=== PATIENT | male | born 1985 | race Caucasian/White ===

== ENCOUNTER 2023-12-14 21:00 | Emergency (ER) | payer OTHER ==
[2023-12-14 21:15] VITALS: TEMP 98.8
--- NOTE | 2023-12-14 21:31 | ED ---
General Adult HPI - General Source: patient, RN notes reviewed Limitations: no limitations <Etelvina Martinez - Last Filed: 12/14/23 21:26> <Augie Alvarado - Last Filed: 12/14/23 23:10> - General Chief complaint: Extremity Problem,Nontraumatic Stated complaint: Foot Pain Time Seen by Provider: 12/14/23 21:18 - History of Present Illness Initial comments: quick [id number] male presents emergency department chief complaint of bilateral foot pain that has been worsening over the past week. He denies any known injuries to the left feet. States that the pain worsened throughout the day while he is walking and standing on his feet for prolonged period of time. Denies pain in his calfs or lower extremity edema. Denies fevers, chills, nausea, vomiting. Denies history of DVT or blood clotting disorders. (Etelvina Martinez) Patient is presenting with bilateral foot pain. 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 He denies any other injury. He states he typically takes 800 mg Motrin but is out of this medication. No fever. No chest pain. He is also on Norvasc for hypertension. (Augie Alvarado) - Related Data Previous Rx's Medication Instructions Recorded Ibuprofen [Motrin] 600 mg PO Q8HR PRN #24 tab 12/14/23 Allergies Allergy/AdvReac Type Severity Reaction Status Date / Time No Known Allergies Allergy Verified 12/14/23 21:16 Review of Systems ROS Other: All systems not noted in ROS Statement are negative. <Etelvina Martinez - Last Filed: 12/14/23 21:26> ROS Other: All systems not noted in ROS Statement are negative. <Augie Alvarado - Last Filed: 12/14/23 23:10> ROS Statement: Those systems with pertinent positive or pertinent negative responses have been documented in the HPI. Past Medical History Past Medical History: CVA/TIA, Hypertension History of Any Multi-Drug Resistant Organisms: None Reported Past Surgical History: No Surgical Hx Reported Smoking Status: Current every day smoker Past Alcohol Use History: Abuse Past Drug Use History: None Reported <Etelvina Martinez - Last Filed: 12/14/23 21:26> General Exam Limitations: no limitations <Etelvina Martinez - Last Filed: 12/14/23 21:26> General appearance: alert, in no apparent distress Head exam: Present: atraumatic, normocephalic Eye exam: Present: normal appearance, PERRL Neck exam: Present: normal inspection. Absent: tenderness, meningismus Respiratory exam: Present: normal lung sounds bilaterally. Absent: respiratory distress Cardiovascular Exam: Present: regular rate, normal rhythm GI/Abdominal exam: Present: soft. Absent: distended, tenderness Extremities exam: Present: tenderness (Bilateral heel tenderness distal pulses intact, soft tissue swelling), pedal edema Neurological exam: Present: alert, oriented X3 Psychiatric exam: Present: normal affect, normal mood <Augie Alvarado - Last Filed: 12/14/23 23:10> - General Exam Comments Initial Comments: Visual Physical Exam Vital signs reviewed General: Well-appearing, nontoxic, no acute distress. Head: Normocephalic, atraumatic Eyes: PERRLA, EOMI ENT: Airway patent Chest: Nonlabored breathing Skin: No visual rash, normal skin tone Neuro: Alert and oriented 3 Musculoskeletal: No gross abnormalities (Etelvina Martinez) Course Vital Signs 12/14/23 21:12 Temperature 98.8 F Pulse Rate 109 H Respiratory 20 Rate Blood Pressure 145/83 O2 Sat by Pulse 97 Oximetry Medical Decision Making <Etelvina Martinez - Last Filed: 12/14/23 21:26> - Lab Data Result diagrams: 12/14/23 22:08 12/14/23 22:08 <Augie Alvarado - Last Filed: 12/14/23 23:10> - Medical Decision Making I completed the quick note portion of this chart signed Etelvina Martinez PA-C (Etelvina Martinez) Was pt. sent in by a medical professional or institution ([facility], [facility], urgent care, hospital, or longterm...) When possible be specific @ -No Did you speak to anyone other than the patient for history (EMS, parent, family, police, friend...)? What history was obtained from this source @ -No Did you review nursing and triage notes (agree or disagree)? Why? @ -I reviewed and agree with nursing and triage notes Were old charts reviewed (outside hosp., previous admission, EMS record, old EKG, old radiological studies, urgent care reports/EKG's, longterm records)? Report findings @ -No old charts were reviewed Differential Musculoskeletal Muscular strain, contusion, ligament sprain, fracture, arthritis, septic arthritis, bursitis, cellulitis, muscle spasm, nerve compression, DVT, arterial occlusion, herpes zoster, electrolyte abnormality, tumor.... This is not meant to be in all inclusive list EKG interpreted by me (3pts min.). G: Sinus rhythm rate of 96, WV interval 138, QRS duration 105, QTc [address] segment elevation X-rays interpreted by me (1pt min.). @ -X-ray of the bilateral feet negative for displaced fracture, no acute process, mild degenerative change. CT interpreted by me (1pt min.). @ -None done U/S interpreted by me (1pt. min.). @ -None done What testing was considered but not performed or refused? (CT, X-rays, U/S, labs)? Why? @ -None What meds were considered but not given or refused? Why? @ -None Did you discuss the management of the patient with other professionals (professionals i.e. , PA, [employer], lab, RT, psych nurse, social work lecturer, scroll assembler, teacher, administrative hearing officer, case loader operator)? Give summary @ -No Was smoking cessation discussed for >3mins.? @ -No Was critical care preformed (if so, how long)? @ -No Were there social determinants of health that impacted care today? How? (Homelessness, low income, unemployed, alcoholism, drug addiction, transportation, low edu. Level, literacy, decrease access to med. care, snf, rehab)? @ -No Was there de-escalation of care discussed even if they declined (Discuss DNR or withdrawal of care, Hospice)? DNR status @ -No What co-morbidities impacted this encounter? (DM, HTN, Smoking, COPD, CAD, Cancer, CVA, ARF, Chemo, Hep., AIDS, mental health diagnosis, sleep apnea, morbid obesity)? @ -[Hypertension Was patient admitted / discharged? Hospital course, mention meds given and route, prescriptions, significant lab abnormalities, going to OR and other pertinent info. @ -38-year-old male with bilateral feet pain and swelling after standing on his feet for prolonged period of time. He does have pain predominantly in the heel. May have plantar fasciitis. He also has soft tissue swelling in the bilateral feet which is likely from dependent edema and possibility of side effect from Norvasc. Patient is instructed to elevate his feet and take Motrin for pain. Undiagnosed new problem with uncertain prognosis? @ -No Drug Therapy requiring intensive monitoring for toxicity (Heparin, Nitro, Insulin, Cardizem)? @ -No Were any procedures done? @ -No Diagnosis/symptom? @Bilateral heel pain Acute, or Chronic, or Acute on Chronic? @ -Acute Uncomplicated (without systemic symptoms) or Complicated (systemic symptoms)? @ -Default Side effects of treatment? @ -No Exacerbation, Progression, or Severe Exacerbation? @ -No Poses a threat to life or bodily function? How? (Chest pain, [place], [place], pneumonia, PE, COPD, DKA, ARF, appy, cholecystitis, CVA, Diverticulitis, Homicidal, [place] icidal, threat to staff... and all critical care pts) @ -No (Augie Alvarado) - Lab Data Lab Results 12/14/23 12/14/23 Range/Units 22:08 22:08 WBC 11.7 H (3.8-10.6) k/uL RBC 5.15 (4.30-5.90) m/uL Hgb 16.0 (13.0-17.5) gm/dL Hct 48.5 (39.0-53.0) % MCV 94.1 (80.0-100.0) fL MCH 31.1 (25.0-35.0) pg MCHC 33.1 (31.0-37.0) g/dL RDW 12.4 (11.5-15.5) % Plt Count 318 (150-450) k/uL MPV 7.7 Neutrophils % 57 % Lymphocytes % 32 % Monocytes % 8 % Eosinophils % 1 % Basophils % 0 % Neutrophils # 6.7 (1.3-7.7) k/uL Lymphocytes # 3.7 (1.0-4.8) k/uL Monocytes # 0.9 (0-1.0) k/uL Eosinophils # 0.1 (0-0.7) k/uL Basophils # 0.1 (0-0.2) k/uL Sodium 139 (137-145) mmol/L Potassium 4.1 (3.5-5.1) mmol/L Chloride 104 (98-107) mmol/L Carbon Dioxide 25 (22-30) mmol/L Anion Gap 10 mmol/L BUN 15 (9-20) mg/dL Creatinine 0.97 (0.66-1.25) mg/dL Est GFR (CKD-EPI)AfAm >90 (>60 ml/min/1.73 sqM) Est GFR (CKD-EPI)NonAf >90 (>60 ml/min/1.73 sqM) Glucose 93 (74-99) mg/dL Calcium 10.1 (8.4-10.2) mg/dL Total Bilirubin 0.5 (0.2-1.3) mg/dL AST 30 (17-59) U/L ALT 36 (4-49) U/L Alkaline Phosphatase 72 (38-126) U/L Total Protein 8.3 H (6.3-8.2) g/dL Albumin 4.8 (3.5-5.0) g/dL Disposition <Etelvina Martinez - Last Filed: 12/14/23 21:26> Is patient prescribed a controlled substance at d/c from ED?: No Time of Disposition: 23:10 <Augie Alvarado - Last Filed: 12/14/23 23:10> Clinical Impression: Bilateral foot pain Disposition: HOME SELF-CARE Condition: Fair Instructions (If sedation given, give patient instructions): Plantar Fasciitis (ED), Leg Edema (ED) Prescriptions: Ibuprofen [Motrin] 600 mg PO Q8HR PRN #24 tab PRN Reason: Pain Referrals: Nonstaff,Physician [Primary Care Provider] - 1-2 days
--- NOTE | 2023-12-14 22:07 | XR ---
EXAMINATION TYPE: XR foot complete bilateral DATE OF EXAM: 12/14/2023 9:42 PM CLINICAL INDICATION: Male, 38 years old with history of foot pain; COMPARISON: None TECHNIQUE: XR foot complete bilateral examined in the AP, oblique, and lateral projections. FINDINGS: Soft tissue swelling present. No evidence of any acute osseous pathology. Accessory ossicles are pres ent bilaterally. Minimal joint space narrowing osteophyte formation throughout the joints of the the. IMPRESSION: 1. Soft tissue swelling without evidence of fracture bilaterally. 2. Minimal bilateral degeneration changes throughout the joints of the foot. [facility], Workstation: [id number], 12/14/2023 10:05 PM
[2023-12-14 22:37] LABS: Basophils # (A) 0.1 k/uL (0-0.2); Basophils % (A) 0 %; Eosinophils # (A) 0.1 k/uL (0-0.7); Eosinophils % (A) 1 %; HCT 48.5 % (39.0-53.0); Lymphocytes # (A) 3.7 k/uL (1.0-4.8); Lymphocytes % (A) 32 %; MCH 31.1 pg (25.0-35.0); MCHC 33.1 g/dL (31.0-37.0); MCV 94.1 fL (80.0-100.0); Mean Platelet Volume 7.7; Monocytes # (A) 0.9 k/uL (0-1.0); Monocytes % (A) 8 %; Neutrophils # (A) 6.7 k/uL (1.3-7.7); Neutrophils % (A) 57 %; Platelet Count 318 k/uL (150-450); RBC 5.15 m/uL (4.30-5.90); RDW 12.4 % (11.5-15.5); WBC 11.7 k/uL (3.8-10.6)
[2023-12-14 22:55] LABS: ALT 36 U/L (4-49); AST 30 U/L (17-59); African American GFR (CKD) >90 (>60 ml/min/1.73 sqM); Albumin 4.8 g/dL (3.5-5.0); Alkaline Phosphatase 72 U/L (38-126); Anion Gap 10 mmol/L; Blood Urea Nitrogen 15 mg/dL (9-20); Calcium 10.1 mg/dL (8.4-10.2); Carbon Dioxide 25 mmol/L (22-30); Chloride 104 mmol/L (98-107); Glucose 93 mg/dL (74-99); Non-African American GFR(CKD) >90 (>60 ml/min/1.73 sqM); Potassium 4.1 mmol/L (3.5-5.1); Sodium 139 mmol/L (137-145); Total Bilirubin 0.5 mg/dL (0.2-1.3); Total Protein 8.3 g/dL (6.3-8.2)
[2023-12-14] MEDS: KETOROLAC 15 MG/ML 1 ML VIAL IM STA (23:12)
[2023-12-14 23:17] VITALS: BP 142/104; PULSE 96; RESP 17
== END 2023-12-14 23:26 | disposition home or self-care (01) ==
LOC: EC 21:00
CPT/HCPCS: 36415; 80053; 85025; 93005; 96372; 99284

== ENCOUNTER 2024-04-22 19:35 | Outpatient (CLI) | payer OTHER ==
--- NOTE | 2024-04-25 18:39 | P.PCN ---
Description of Procedure: POLYSOMNOGRAPHY REPORT PROCEDURE(S)/DATE(S): Polysomnography 04/22/2024 CLINICAL: Patient has been seen in the sleep center for evaluation of obstructive sleep apnea-hypopnea syndrome. Please see my consultation. Sleep study has been done for evaluation of patient breathing during the sleep. PROCEDURE: The standard montage for clinical polysomnography included the electroencephalogram, the electrooculogram, the mentalis surface electromyography and Lead II cardiography. The respiratory battery consisted of measurements of nasal/buccal air flow, pressure transducer measurements from nose, thoracic and/or abdominal effort and intercostal surface electromyography. Video monitoring has been done to check for any parasomnia events. Nocturnal oxyhemoglobin saturations were obtained by finger oximetry. Step-naranjo titration with positive airway pressure was utilized to control the respiratory events, if necessary. RESULTS: During the diagnostic sleep study sleep efficiency was decreased to 70.1%. Latency to sleep onset was prolonged to 50.0 min. Sleep architecture showed stage NI prolonged to 18.8%, Delta sleep was absent 0%, REM sleep was slightly decreased to 18.1%. Respiratory channel showed 41 obstructive apneas, 1 mixed apneas, 0 central apneas, 461 hypopneas with lowest oxygen level 64%. Total apnea hypopnea index was 106.3. Heart rate was in the range between 63 and 87, average 74. EMG showed 0 periodic limb movements per hour with 0 micro-arousals per hour. IMPRESSIONS: 1. Extremely severe obstructive sleep apnea hypopnea syndrome. 2. No significant periodic limb movements have been documented. Please see other impressions from consultation PLAN: 1. The patient will have PAP titration for correction of respiratory abnormalities during the sleep. 2. Losing weight program. 3. Sleep hygiene with regular time in bed for at least 7-1/2 hours. 4. No driving if feeling sleepiness. Thank you very much for allowing me to participate in the management of your patient. Sincerely, Judd Fowler MD, PhD, FAASM. Diplomat of [place] [employer], Sleep Medicine Board by [place] [employer]arel Manufacture Instructor of [facility] [place] cc: Keiry Hoyt
== END 2024-04-23 05:35 | disposition home or self-care (01) ==
LOC: 3 N SLEEP 19:35
PROVIDERS: ATTEND Internal Medicine
DX: G47.33 Obstructive sleep apnea (adult) (pediatric) (principal)
CPT/HCPCS: 95810

== ENCOUNTER 2024-05-06 19:58 | Outpatient (CLI) | payer OTHER ==
--- NOTE | 2024-05-09 13:33 | P.PCN ---
Description of Procedure: CLINICAL: Titration with positive air pressure has been done for correction of respiratory abnormalities during sleep. DESCRIPTION OF PROCEDURE: The standard montage for clinical polysomnography included the electroencephalogram, the electrocardiogram, the mentalis surface electromyography and Lead II cardiography. The respiratory battery consisted of measurements of nasal /buccal air flow, pressure transducer measurements from the nose, thoracic and /or abdominal effort and intercostal surface electromyography. Video monitoring has been done to check for any parasomnia events. Nocturnal oxyhemoglobin saturations were obtained by finger oximetry. Step-naranjo titration with positive airway pressure was utilized to control respiratory events. Raw data of sleep recording has been reviewed and is adequate. RESULTS: Sleep efficiency was slightly decreased to 84.7%. Latency to sleep onset was borderline 29.5 minutes.]. Sleep architecture showed stage N1 was normal 6.4%, Delta sleep close 0.7%, REM sleep was not normal high range 28.9%. Heart rate was minimum 70 BPM, maximum 85 BPM, average 77 BPM. EMG showed 0 periodic limb movements per hour. PAP titration have been done with CPAP up to the pressure 14 cm H2O. Patient had problems with CPAP, switched to BPAP. BPAP titrated up to 19/15 cm H2O. The best results were at the pressure 19/15 cm H2O. IMPRESSION: 1. Obstructive sleep apnea hypopnea syndrome mostly on controle with PAP treatment. 2. No significant periodic limb movements have been documented. Please see other impressions from consultation. PLAN: 1. The patient will have treatment with positive air pressure equipment with the level of pressure Bpap 19/15 cm H2O and should use it every night for the whole night. 2. Watching and losing weight. 3. Sleep hygiene with regular time in bed for at least 8 hours. 4. No driving if feeling any sleepiness. 5. I will see the patient for follow up visit to explain the results of the test, recommendations, check compliance with treatment and make any necessary adjustment related to mask fitting, pressure and humidification. Thank you very much for allowing me to participate in the management of your patient. Sincerely, Judd Fowler MD, PhD, FAASM Diplomat of [place] [employer] Sleep Medicine Board of [place] [employer] Insulation Supervisor of [facility] [place] cc: Keiry Hoyt
== END 2024-05-07 05:45 | disposition home or self-care (01) ==
LOC: 3 N SLEEP 19:58
PROVIDERS: ATTEND Internal Medicine
DX: G47.33 Obstructive sleep apnea (adult) (pediatric) (principal); Z99.89 Dependence on other enabling machines and devices
CPT/HCPCS: 95811

== ENCOUNTER 2024-06-19 09:01 | Emergency (ER) | payer OTHER ==
--- NOTE | 2024-06-19 09:24 | ED ---
General Adult HPI - General Chief complaint: Nausea/Vomiting/Diarrhea Stated complaint: NVD,cough Time Seen by Provider: 06/19/24 09:05 Source: patient, RN notes reviewed, old records reviewed Mode of arrival: ambulatory Limitations: no limitations - History of Present Illness Initial comments: This is a 38-year-old male who presents to the emergency department stating that he is having a lot of coughing a fever and he coughed so hard sometimes he thr ows up. Patient states he is also diarrhea. Patient also complains of sore throat. Patient states that symptoms started yesterday. Patient denies chest pain palpitations. Patient denies any abdominal pain. Patient states he is not nauseous currently and only occurs when he coughs so hard he throws up. - Related Data Previous Rx's Medication Instructions Recorded Ibuprofen [Motrin] 600 mg PO Q8HR PRN #24 tab 12/14/23 Benzonatate [Tessalon Perle] 200 mg PO Q8H #15 cap 06/19/24 Allergies Allergy/AdvReac Type Severity Reaction Status Date / Time No Known Allergies Allergy Verified 06/19/24 09:07 Review of Systems ROS Statement: Those systems with pertinent positive or pertinent negative responses have been documented in the HPI. ROS Other: All systems not noted in ROS Statement are negative. Past Medical History Past Medical History: CVA/TIA, Hypertension History of Any Multi-Drug Resistant Organisms: None Reported Past Surgical History: No Surgical Hx Reported Past Anesthesia/Blood Transfusion Reactions: No Reported Reaction Past Psychological History: Anxiety, Bipolar, Depression Smoking Status: Current every day smoker Past Alcohol Use History: Abuse Past Drug Use History: None Reported - Past Family History Mother Family Medical History: Cancer, CVA/TIA, Hypertension Additional Family Medical History / Comment(s): sinus headaches, lung problems, Lung Cancer, Insomnia General Exam - General Exam Comments Initial Comments: GENERAL: Patient is well-developed and well-nourished. Patient is nontoxic and well- hydrated and is in mild distress. ENT: Neck is soft and supple. No significant lymphadenopathy is noted. Oropharynx is clear. Moist mucous membranes. Neck has full range of motion without eliciting any pain. EYES: The sclera were anicteric and conjunctiva were pink and moist. Extraocular movements were intact and pupils were equal round and reactive to light. Eyelids were unremarkable. PULMONARY: Unlabored respirations. Good breath sounds bilaterally. No audible rales rhonchi or wheezing was noted. CARDIOVASCULAR: There is a regular rate and rhythm without any murmurs gallops or rubs. ABDOMEN: Soft and nontender with normal bowel sounds. SKIN: Skin is clear with no lesions or rashes and otherwise unremarkable. NEUROLOGIC: Patient is alert and oriented x3. Cranial nerves II through XII are grossly intact. Motor and sensory are also intact. Normal speech, volume and content. Symmetrical smile. MUSCULOSKELETAL: Normal extremities with adequate strength and full range of motion. LYMPHATICS: No significant lymphadenopathy is noted PSYCHIATRIC: Normal psychiatric evaluation. Limitations: no limitations Course Vital Signs 06/19/24 06/19/24 09:03 09:51 Temperature 100.7 F H Pulse Rate 116 H Respiratory 20 18 Rate Blood Pressure 140/86 O2 Sat by Pulse 96 Oximetry Medical Decision Making - Medical Decision Making EKG is interpreted by myself. EKG shows a sinus tachycardia at 103 bpm FL interval Braaksma 38 QRS 114 QT interval 325 QTc is 385. Patient's EKG shows no ST segment elevation or depression. Was pt. sent in by a medical professional or institution (, PA, ELEVATOR REPAIR MECHANIC, urgent care, hospital, or correction...) When possible be specific @ -No Did you speak to anyone other than the patient for history (EMS, parent, family, police, friend...)? What history was obtained from this source @ -No Did you review nursing and triage notes (agree or disagree)? Why? @ -I reviewed and agree with nursing and triage notes Were old charts reviewed (outside hosp., previous admission, EMS record, old EKG, old radiological studies, urgent care reports/EKG's, correction records)? Report findings @ -No old charts were reviewed Differential Diagnosis? @ -Influenza A, influenza B, COVID, RSV, bronchitis, pneumonia, strep throat, this is not an all-inclusive list EKG interpreted by me (3pts min.). @ -As above X-rays interpreted by me (1pt min.). @ -Chest x-ray shows no acute normality. CT interpreted by me (1pt min.). @ -None done U/S interpreted by me (1pt. min.). @ -None done What testing was considered but not performed or refused? (CT, X-rays, U/S, labs)? Why? @ -None What meds were considered but not given or refused? Why? @ -None Did you discuss the management of the patient with other professionals (professionals i.e. , PA, ELEVATOR REPAIR MECHANIC, lab, RT, psych nurse, marriage and family social worker, report manager, teacher, aadc plans staff officer, block and case maker)? Give summary @ -No Was smoking cessation discussed for >3mins.? @ -No Was critical care preformed (if so, how long)? @ -No Were there social determinants of health that impacted care today? How? (Homelessness, low income, unemployed, alcoholism, drug addiction, transportation, low edu. Level, literacy, decrease access to med. care, longterm, rehab)? @ -No Was there de-escalation of care discussed even if they declined (Discuss DNR or withdrawal of care, Hospice)? DNR status @ -No What co-morbidities impacted this encounter? (DM, HTN, Smoking, COPD, CAD, Cancer, CVA, ARF, Chemo, Hep., AIDS, mental health diagnosis, sleep apnea, morbid obesity)? @ -None Was patient admitted / discharged? Hospital course, mention meds given and route, prescriptions, significant lab abnormalities, going to OR and other pertinent info. @ -Patient was given Motrin and Tylenol p.o. for the fever. Patient had lab work done as well as viral swabs all were negative. Chest x-ray was negative Undiagnosed new problem with uncertain prognosis? @ -No Drug Therapy requiring intensive monitoring for toxicity (Heparin, Nitro, Insulin, Cardizem)? @ -No Were any procedures done? @ -No Diagnosis/symptom? @ -Viral syndrome Acute, or Chronic, or Acute on Chronic? @ -Acute Uncomplicated (without systemic symptoms) or Complicated (systemic symptoms)? @ -Uncomplicated Side effects of treatment? @ -No Exacerbation, Progression, or Severe Exacerbation? @ -No Poses a threat to life or bodily function? How? (Chest pain, [place], [place], pneumonia, PE, COPD, DKA, ARF, appy, cholecystitis, CVA, Diverticulitis, Homicidal, Suicidal, threat to staff... and all critical care pts) @ -No - Lab Data Result diagrams: 06/19/24 09:47 06/19/24 09:47 Lab Results 06/19/24 06/19/24 06/19/24 Range/Units 09:47 09:47 09:47 WBC 10.27 H (4.50-10.00) 10*3/uL RBC 5.45 (4.40-5.60) 10*6/uL Hgb 16.2 (13.0-17.0) g/dL Hct 47.0 (39.6-50.0) % MCV 86.2 (80.0-97.0) fL MCH 29.7 (27.0-32.0) pg MCHC 34.5 (32.0-37.0) g/dL Plt Count 280 (140-440) 10*3/uL MPV 9.8 (9.5-12.2) fL Immature Gran % (Auto) 0.3 % Neutrophils % 73.3 % Lymphocytes % 15.0 % Monocytes % 10.2 % Eosinophils % 0.8 % Basophils % 0.4 % Immature Gran # 0.03 (0.00-0.04) 10*3/uL Neutrophils # 7.53 (1.80-7.70) 10*3/uL Lymphocytes # 1.54 (0.90-5.00) 10*3/uL Monocytes # 1.05 H (0.20-1.00) 10*3/uL Eosinophils # 0.08 (0.04-0.35) 10*3/uL Basophils # 0.04 (0.00-0.10) 10*3/uL Sodium 137 (137-145) mmol/L Potassium 4.1 (3.5-5.1) mmol/L Chloride 103 (98-107) mmol/L Carbon Dioxide 19 L (22-30) mmol/L Anion Gap 15 mmol/L BUN 12 (9-20) mg/dL Creatinine 0.84 (0.66-1.25) mg/dL Est GFR (CKD-EPI)AfAm >90 (>60 ml/min/1.73 sqM) Est GFR (CKD-EPI)NonAf >90 (>60 ml/min/1.73 sqM) Glucose 132 H (74-99) mg/dL Calcium 9.3 (8.4-10.2) mg/dL Total Bilirubin 0.7 (0.2-1.3) mg/dL AST 31 (17-59) U/L ALT 34 (4-49) U/L Alkaline Phosphatase 98 (38-126) U/L Total Protein 7.8 (6.3-8.2) g/dL Albumin 4.3 (3.5-5.0) g/dL Influenza Type A (PCR) Not Detected (Not Detectd) Influenza Type B (PCR) Not Detected (Not Detectd) RSV (PCR) Not Detected (Not Detectd) SARS-CoV-2 (PCR) Not Detected (Not Detectd) Group A Strep (PCR) (Not Detectd) 06/19/24 Range/Units 09:47 WBC (4.50-10.00) 10*3/uL RBC (4.40-5.60) 10*6/uL Hgb (13.0-17.0) g/dL Hct (39.6-50.0) % MCV (80.0-97.0) fL MCH (27.0-32.0) pg MCHC (32.0-37.0) g/dL Plt Count (140-440) 10*3/uL MPV (9.5-12.2) fL Immature Gran % (Auto) % Neutrophils % % Lymphocytes % % Monocytes % % Eosinophils % % Basophils % % Immature Gran # (0.00-0.04) 10*3/uL Neutrophils # (1.80-7.70) 10*3/uL Lymphocytes # (0.90-5.00) 10*3/uL Monocytes # (0.20-1.00) 10*3/uL Eosinophils # (0.04-0.35) 10*3/uL Basophils # (0.00-0.10) 10*3/uL Sodium (137-145) mmol/L Potassium (3.5-5.1) mmol/L Chloride (98-107) mmol/L Carbon Dioxide (22-30) mmol/L Anion Gap mmol/L BUN (9-20) mg/dL Creatinine (0.66-1.25) mg/dL Est GFR (CKD-EPI)AfAm (>60 ml/min/1.73 sqM) Est GFR (CKD-EPI)NonAf (>60 ml/min/1.73 sqM) Glucose (74-99) mg/dL Calcium (8.4-10.2) mg/dL Total Bilirubin (0.2-1.3) mg/dL AST (17-59) U/L ALT (4-49) U/L Alkaline Phosphatase (38-126) U/L Total Protein (6.3-8.2) g/dL Albumin (3.5-5.0) g/dL Influenza Type A (PCR) (Not Detectd) Influenza Type B (PCR) (Not Detectd) RSV (PCR) (Not Detectd) SARS-CoV-2 (PCR) (Not Detectd) Group A Strep (PCR) NOT DETECTED (Not Detectd) Disposition Clinical Impression: Viral syndrome Disposition: HOME SELF-CARE Instructions (If sedation given, give patient instructions): Viral Syndrome (ED) Prescriptions: Benzonatate [Tessalon Perle] 200 mg PO Q8H #15 cap Is patient prescribed a controlled substance at d/c from ED?: No Referrals: [facility] [NON-STAFF] - 1-2 days (Contact a primary care office to become established with a provider. ) None,Stated [Primary Care Provider] - 1-2 days Forms: Area PCPs Time of Disposition: 10:55
[2024-06-19] MEDS: ACETAMINOPHEN TAB 500 MG TAB PO STA (09:33)
[2024-06-19] MEDS: IBUPROFEN 600 MG TAB PO STA (09:35)
[2024-06-19 10:08] LABS: Basophils # (A) 0.04 10*3/uL (0.00-0.10); Basophils % (A) 0.4 %; Eosinophils # (A) 0.08 10*3/uL (0.04-0.35); Eosinophils % (A) 0.8 %; HGB 16.2 g/dL (13.0-17.0); Lymphocytes # (A) 1.54 10*3/uL (0.90-5.00); MCH 29.7 pg (27.0-32.0); MCHC 34.5 g/dL (32.0-37.0); MCV 86.2 fL (80.0-97.0); Mean Platelet Volume 9.8 fL (9.5-12.2); Monocytes # (A) 1.05 10*3/uL (0.20-1.00); Monocytes % (A) 10.2 %; Neutrophils # (A) 7.53 10*3/uL (1.80-7.70); Neutrophils % (A) 73.3 %; Platelet Count 280 10*3/uL (140-440); RBC 5.45 10*6/uL (4.40-5.60); RDW 13.4 % (11.5-14.5); WBC 10.27 10*3/uL (4.50-10.00)
[2024-06-19 10:15] LABS: ALT 34 U/L (4-49); AST 31 U/L (17-59); African American GFR (CKD) >90 (>60 ml/min/1.73 sqM); Albumin 4.3 g/dL (3.5-5.0); Alkaline Phosphatase 98 U/L (38-126); Anion Gap 15 mmol/L; Blood Urea Nitrogen 12 mg/dL (9-20); Calcium 9.3 mg/dL (8.4-10.2); Carbon Dioxide 19 mmol/L (22-30); Chloride 103 mmol/L (98-107); Glucose 132 mg/dL (74-99); Non-African American GFR(CKD) >90 (>60 ml/min/1.73 sqM); Potassium 4.1 mmol/L (3.5-5.1); Sodium 137 mmol/L (137-145); Total Bilirubin 0.7 mg/dL (0.2-1.3); Total Protein 7.8 g/dL (6.3-8.2)
--- NOTE | 2024-06-19 10:26 | XR ---
EXAMINATION TYPE: XR chest 2V DATE OF EXAM: 06/19/2024 10:21 AM COMPARISON: None TECHNIQUE: XR chest 2V Frontal and lateral views of the chest. CLINICAL INDICATION:Male, 38 years old with history of Difficulty breathing ; FINDINGS: Lungs/Pleura: There is no evidence of pleural effusion, focal consolidation, or pneumothorax. Pulmonary vascularity: Unremarkable. Heart/mediastinum: Cardiomediastinal silhouette is unremarkable. Musculoskeletal: No acute osseous pathology. IMPRESSION: No acute cardiopulmonary disease/process. [facility], , 06/19/2024 10:23 AM
[2024-06-19 10:33] LABS: Influenza A Not Detected (Not Detectd); Influenza B Not Detected (Not Detectd); RSV Not Detected (Not Detectd)
[2024-06-19 11:26] VITALS: TEMP 98.7
[2024-06-19 11:32] VITALS: BP 130/89; PULSE 92; RESP 24
== END 2024-06-19 11:30 | disposition home or self-care (01) ==
LOC: EC 09:01
DX: R11.2 Nausea with vomiting, unspecified (principal); B34.9 Viral infection, unspecified; F17.200 Nicotine dependence, unspecified, uncomplicated
CPT/HCPCS: 36415; 71046; 80053; 85025; 87636; 87651; 93005; 99284

== ENCOUNTER 2024-08-13 16:36 | Emergency (ER) | payer OTHER ==
--- NOTE | 2024-08-13 17:17 | ED ---
Chest Pain HPI - General Chief Complaint: Chest Pain Stated Complaint: chest pain Time Seen by Provider: 08/13/24 16:52 Source: patient, RN notes reviewed Mode of arrival: ambulatory Limitations: no limitations - History of Present Illness Initial Comments: This is a 38-year-old male with history of TIA, hypertension and EtOH abuse presenting for chest pain while at rest starting this morning. Patient endorses constant, nonradiating, mid chest pressure with associated dizziness, palpitations, fatigue, cold sweats and dyspnea on exertion. Patient denies radiating pain, pleuritic chest pain, presyncope, history of AMI. MD Complaint: chest pain Onset/Timin -: hour(s) Onset: during rest Pain Location: left chest Pain Radiation: none Severity scale (1-10): 7 Quality: tightness Consistency: constant Improves With: rest Worsens With: exertion Other Symptoms: palpitations Treatments Prior to Arrival: none - Related Data Previous Rx's Medication Instructions Recorded Aspirin 81 mg PO DAILY #30 tab 08/14/24 Atorvastatin [Lipitor] 80 mg PO DAILY #30 tab 08/14/24 carvediloL [Coreg] 3.125 mg PO BID-W/MEALS #60 tab 08/14/24 Allergies Allergy/AdvReac Type Severity Reaction Status Date / Time No Known Allergies Allergy Verified 08/13/24 21:22 Review of Systems ROS Statement: Those systems with pertinent positive or pertinent negative responses have been documented in the HPI. ROS Other: All systems not noted in ROS Statement are negative. Past Medical History Past Medical History: CVA/TIA, Hypertension History of Any Multi-Drug Resistant Organisms: None Reported Past Surgical History: No Surgical Hx Reported Past Anesthesia/Blood Transfusion Reactions: No Reported Reaction Past Psychological History: Anxiety, Bipolar, Depression Smoking Status: Current every day smoker Past Alcohol Use History: Abuse Past Drug Use History: None Reported - Past Family History Mother Family Medical History: Cancer, CVA/TIA, Hypertension Additional Family Medical History / Comment(s): sinus headaches, lung problems, Lung Cancer, Insomnia General Exam Limitations: no limitations General appearance: alert, in no apparent distress Head exam: Present: atraumatic, normocephalic, normal inspection Eye exam: Present: normal appearance, PERRL, EOMI. Absent: scleral icterus, conjunctival injection, periorbital swelling ENT exam: Present: normal exam, mucous membranes moist Neck exam: Present: normal inspection. Absent: tenderness, meningismus, lymphadenopathy Respiratory exam: Present: normal lung sounds bilaterally, wheezes (Inspiratory wheezing auscultated in all yeager), decreased breath sounds (Diminished lung sounds auscultated in all yeager). Absent: respiratory distress, rales, rhonchi, stridor, accessory muscle use, prolonged expiratory Cardiovascular Exam: Present: regular rate, normal rhythm, normal heart sounds. Absent: systolic murmur, diastolic murmur, rubs, gallop, clicks GI/Abdominal exam: Present: soft, normal bowel sounds. Absent: distended, tenderness, guarding, rebound, rigid Extremities exam: Present: normal inspection, full ROM, normal capillary refill. Absent: tenderness, pedal edema, joint swelling, calf tenderness Back exam: Present: normal inspection Neurological exam: Present: alert, oriented X3, CN II-XII intact Psychiatric exam: Present: normal affect, normal mood Skin exam: Present: warm, dry, intact, normal color. Absent: rash Course Vital Signs 08/13/24 08/13/24 08/13/24 16:38 16:53 16:55 Temperature 98.0 F Pulse Rate 99 94 Pulse Rate [ 94 Pulse Oximetery ] Respiratory 15 20 Rate Blood Pressure 162/114 144/90 O2 Sat by Pulse 96 97 Oximetry 08/13/24 08/13/24 17:54 18:54 Temperature 98.1 F 98.1 F Pulse Rate 87 89 Pulse Rate [ Pulse Oximetery ] Respiratory 20 18 Rate Blood Pressure 131/81 133/87 O2 Sat by Pulse 99 97 Oximetry Chest Pain MDM - MDM Was pt. sent in by a medical professional or institution (, PA, SYSTEMS SOFTWARE DEVELOPER, urgent care, hospital, or usp...) When possible be specific @ -No Did you speak to anyone other than the patient for history (EMS, parent, family, police, friend...)? What history was obtained from this source @ -No Did you review nursing and triage notes (agree or disagree)? Why? @ -I reviewed and agree with nursing and triage notes Were old charts reviewed (outside hosp., previous admission, EMS record, old EKG, old radiological studies, urgent care reports/EKG's, usp records)? Report findings @ -No old charts were reviewed Differential Diagnosis (chest pain, altered mental status, abdominal pain women, abdominal pain men, vaginal bleeding, weakness, fever, dyspnea, syncope, headache, dizziness, GI bleed, back pain, seizure, CVA, palpatations, mental health, musculoskeletal)? @ -Differential Chest Pain: Stable Angina, Unstable Angina, STEMI, NSTEMI Aortic Dissection, Pneumothorax, Musculoskeletal, Esophageal Spasm GERD, Cholecystitis, Pancreatitis, Zoster, this is not meant to be an all-inclusive list. EKG interpreted by me (3pts min.). @ -Sinus rhythm without ST deviation or T wave inversion. Incomplete RBBB noted. Ventricular rate 99 bpm, GLORIA 143 ms, QRS 113 ms, QTc 391 ms. X-rays interpreted by me (1pt min.). @ -CXR shows no acute cardiopulmonary process CT interpreted by me (1pt min.). @ -None done U/S interpreted by me (1pt. min.). @ -None done What testing was considered but not performed or refused? (CT, X-rays, U/S, labs)? Why? @ -None What meds were considered but not given or refused? Why? @ -None Did you discuss the management of the patient with other professionals (professionals i.e. , PA, SYSTEMS SOFTWARE DEVELOPER, lab, RT, psych nurse, social services designee, lace pinner, teacher, facilities officer, medical case manager)? Give summary @ -No Was smoking cessation discussed for >3mins.? @ -No Was critical care preformed (if so, how long)? @ -No Were there social determinants of health that impacted care today? How? (Ena elessness, low income, unemployed, alcoholism, drug addiction, transportation, low edu. Level, literacy, decrease access to med. care, intermediate, rehab)? @ -No Was there de-escalation of care discussed even if they declined (Discuss DNR or withdrawal of care, Hospice)? DNR status @ -No What co-morbidities impacted this encounter? (DM, HTN, Smoking, COPD, CAD, Cancer, CVA, ARF, Chemo, Hep., AIDS, mental health diagnosis, sleep apnea, morbid obesity)? @ -Hypertension, TIA Was patient admitted / discharged? Hospital course, mention meds given and route, prescriptions, significant lab abnormalities, going to OR and other pertinent info. @ -Patient provided 324 ASA p.o. CXR shows no acute cardiopulmonary process. Twelve-lead shows sinus rhythm with incomplete RBBB without ST deviation or T wave inversion. Lab work notable for WBC 12.47 with normal D-dimer and troponin. Spoke to Dr. Lewis from [facility] due to symptoms with suspected cardiac etiology for observation admission. Patient is refusing observation admission or repeat troponin. Notify patient that further evaluation and management of symptoms may result in irreversible injury and/or and patient verbalizes understanding. Advised follow-up with PCP in the next 24 hours. Advise return to ER if symptoms persist or continue to worsen. Discussed patient with Dr. Gibson. Undiagnosed new problem with uncertain prognosis? @ -Chest pain Drug Therapy requiring intensive monitoring for toxicity (Heparin, Nitro, Insulin, Cardizem)? @ -No Were any procedures done? @ -No Diagnosis/symptom? @ -Chest pain Acute, or Chronic, or Acute on Chronic? @ -Acute Uncomplicated (without systemic symptoms) or Complicated (systemic symptoms)? @ -Complicated Side effects of treatment? @ -No Exacerbation, Progression, or Severe Exacerbation? @ -No Poses a threat to life or bodily function? How? (Chest pain, [place], [place], pneumonia, PE, COPD, DKA, ARF, appy, cholecystitis, CVA, Diverticulitis, Homicidal, Suicidal, threat to staff... and all critical care pts) @ -Chest pain Disposition Clinical Impression: Chest pain Disposition: LEFT AGAINST MEDICAL ADVICE Condition: Fair Instructions (If sedation given, give patient instructions): Chest Pain (ED) Additional Instructions: Return to ER/call 911 if experiencing ongoing or worsening symptoms. Is patient prescribed a controlled substance at d/c from ED?: No Referrals: None,Stated [Primary Care Provider] - 1-2 days Jackeline Gan MD [REFERRING] - 1-2 days Eduardo Carrion DO [STAFF PHYSICIAN] - 1-2 days Time of Disposition: 18:30
[2024-08-13] MEDS: ASPIRIN 81 MG PO STA (17:18)
[2024-08-13 17:32] LABS: Basophils # (A) 0.05 10*3/uL (0.00-0.10); Basophils % (A) 0.4 %; Eosinophils # (A) 0.11 10*3/uL (0.04-0.35); Eosinophils % (A) 0.9 %; HCT 43.7 % (39.6-50.0); HGB 14.9 g/dL (13.0-17.0); Lymphocytes # (A) 3.96 10*3/uL (0.90-5.00); Lymphocytes % (A) 31.8 %; MCH 29.7 pg (27.0-32.0); MCHC 34.1 g/dL (32.0-37.0); MCV 87.1 fL (80.0-97.0); Mean Platelet Volume 9.6 fL (9.5-12.2); Monocytes # (A) 0.96 10*3/uL (0.20-1.00); Monocytes % (A) 7.7 %; Neutrophils # (A) 7.36 10*3/uL (1.80-7.70); Platelet Count 292 10*3/uL (140-440); RBC 5.02 10*6/uL (4.40-5.60); RDW 13.9 % (11.5-14.5); WBC 12.47 10*3/uL (4.50-10.00)
[2024-08-13 17:42] LABS: ALT 26 U/L (4-49); African American GFR (CKD) >90 (>60 ml/min/1.73 sqM); Albumin 4.2 g/dL (3.5-5.0); Anion Gap 11 mmol/L; Blood Urea Nitrogen 13 mg/dL (9-20); Calcium 9.7 mg/dL (8.4-10.2); Carbon Dioxide 23 mmol/L (22-30); Chloride 104 mmol/L (98-107); Glucose 108 mg/dL (74-99); Non-African American GFR(CKD) >90 (>60 ml/min/1.73 sqM); Sodium 138 mmol/L (137-145); Total Bilirubin 0.5 mg/dL (0.2-1.3)
[2024-08-13 17:43] LABS: AST 31 U/L (17-59); Alkaline Phosphatase 96 U/L (38-126); Potassium 4.4 mmol/L (3.5-5.1)
[2024-08-13 17:52] LABS: INR 0.9 (<1.2); Partial Thromboplastin Time 25.2 sec (22.0-30.0); Prothrombin Time 10.2 sec (10.0-12.5)
[2024-08-13 17:56] VITALS: TEMP 98.1
--- NOTE | 2024-08-13 18:00 | XR ---
EXAMINATION TYPE: XR chest 2V DATE OF EXAM: 08/13/2024 5:32 PM COMPARISON: Prior chest radiograph 06/24/2024. CLINICAL INDICATION: Male, 38 years old with history of Chest Pain; [facility] TECHNIQUE: XR chest 2V Frontal and lateral views of the chest. FINDINGS: Lungs/Pleura: There is no evidence of pleural effusion, focal consolidation, or pneumothorax. Pulmonary vascularity: Unremarkable. Heart/mediastinum: Cardiomediastinal silhouette is unremarkable. Musculoskeletal: No acute osseous pathology. Other findings: None IMPRESSION: No acute cardiopulmonary disease/process. [facility], , 08/13/2024 5:58 PM
[2024-08-13 18:57] VITALS: BP 133/87; PULSE 89; RESP 18
== END 2024-08-13 18:57 | disposition left against medical advice (07) ==
LOC: EC 16:36
DX: R07.9 Chest pain, unspecified (principal); I10 Essential (primary) hypertension; Z86.73 Personal history of transient ischemic attack (TIA), and cerebral infarction without residual deficits; F17.200 Nicotine dependence, unspecified, uncomplicated; Z53.29 Procedure and treatment not carried out because of patient's decision for other reasons
CPT/HCPCS: 36415; 71046; 80053; 83735; 84484; 85025; 85379; 85610; 85730; 93005; 99285

== ENCOUNTER 2024-08-13 19:53 | Observation (INO) | payer OTHER ==
[2024-08-13 19:59] VITALS: RESP 18
--- NOTE | 2024-08-13 20:31 | ED ---
Chest Pain HPI - General Chief Complaint: Chest Pain Stated Complaint: Chest pain,Dizziness Time Seen by Provider: 08/13/24 20:23 Source: patient, RN notes reviewed, old records reviewed Mode of arrival: ambulatory Limitations: no limitations - History of Present Illness Initial Comments: This is a 38-year-old male to the ER with chest pain today. Patient still feels unwell family members that he spoke with at length urged him to come back to the hospital for cardiac evaluation he was initially observed for as a cardiac admit and decided to leave AMA. Patient still with chest pain MD Complaint: chest pain -: days(s) Onset: during rest Pain Location: substernal, left chest Pain Radiation: LUE Severity: moderate Severity scale (1-10): 7 Quality: sharp Consistency: constant Improves With: nothing Worsens With: nothing Anginal Symptoms: dyspnea Treatments Prior to Arrival: none - Related Data Previous Rx's Medication Instructions Recorded Aspirin 81 mg PO DAILY #30 tab 08/14/24 Atorvastatin [Lipitor] 80 mg PO DAILY #30 tab 08/14/24 carvediloL [Coreg] 3.125 mg PO BID-W/MEALS #60 tab 08/14/24 Allergies Allergy/AdvReac Type Severity Reaction Status Date / Time No Known Allergies Allergy Verified 08/13/24 21:22 Review of Systems ROS Statement: Those systems with pertinent positive or pertinent negative responses have been documented in the HPI. ROS Other: All systems not noted in ROS Statement are negative. EKG Findings - EKG Comments: EKG Findings:: EKG is sinus 93 VT 136 QRS 119 QTc 319 - EKG Results: EKG: interpreted by THERON Past Medical History Past Medical History: CVA/TIA, Hypertension History of Any Multi-Drug Resistant Organisms: None Reported Past Surgical History: No Surgical Hx Reported Past Anesthesia/Blood Transfusion Reactions: No Reported Reaction Past Psychological History: Anxiety, Bipolar, Depression Smoking Status: Current every day smoker Past Alcohol Use History: Abuse Past Drug Use History: None Reported - Past Family History Mother Family Medical History: Cancer, CVA/TIA, Hypertension Additional Family Medical History / Comment(s): sinus headaches, lung problems, Lung Cancer, Insomnia General Exam Limitations: no limitations General appearance: alert, in no apparent distress Head exam: Present: atraumatic, normocephalic, normal inspection Eye exam: Present: normal appearance, PERRL, EOMI. Absent: scleral icterus, conjunctival injection, periorbital swelling ENT exam: Present: normal exam, mucous membranes moist Neck exam: Present: normal inspection. Absent: tenderness, meningismus, lymphadenopathy Respiratory exam: Present: normal lung sounds bilaterally. Absent: respiratory distress, wheezes, rales, rhonchi, stridor Cardiovascular Exam: Present: regular rate, normal rhythm, normal heart sounds. Absent: systolic murmur, diastolic murmur, rubs, gallop, clicks GI/Abdominal exam: Present: soft, normal bowel sounds. Absent: distended, tenderness, guarding, rebound, rigid Extremities exam: Present: normal inspection, full ROM, normal capillary refill. Absent: tenderness, pedal edema, joint swelling, calf tenderness Back exam: Present: normal inspection Neurological exam: Present: alert, oriented X3, CN II-XII intact Psychiatric exam: Present: normal affect, normal mood Skin exam: Present: warm, dry, intact, normal color. Absent: rash Course Vital Signs 08/13/24 08/14/24 08/14/24 19:57 05:51 07:01 Temperature 98.4 F Pulse Rate 97 78 65 Respiratory 18 18 18 Rate Blood Pressure 158/95 152/94 146/88 O2 Sat by Pulse 98 96 96 Oximetry - Reevaluation(s) Reevaluation #1: 08/13/24 20:32 Medical record is reviewed 08/13/24 20:32 ER visit from earlier is reviewed reviewed including normal troponin normal EKG Reevaluation #2: 08/13/24 20:32 Patient still with chest pain Reevaluation #3: 08/13/24 20:32 Patient is agreeable to stay as an observation for cardiology Reevaluation #4: Was pt. sent in by a medical professional or institution (, PA, BACKER UP, urgent care, hospital, or residential...) When possible be specific @ -no Did you speak to anyone other than the patient for history (EMS, parent, family, police, friend...)? What history was obtained from this source @ -no Did you review nursing and triage notes (agree or disagree)? Why? @ -agree Are old charts reviewed (outside hosp., previous admission, EMS record, old EKG, old radiological studies, urgent care reports/EKG's, residential records)? Report findings @ -yes Differential Diagnosis (chest pain, altered mental status, abdominal pain women, abdominal pain men, vaginal bleeding, weakness, fever, dyspnea, syncope, headache, dizziness, GI bleed, back pain, seizure, CVA, palpatations, mental health, musculoskeletal)? @ -prior EKG interpreted by me (3pts min.). @ -yes X-rays interpreted by me (1pt min.). @ -no CT interpreted by me (1pt min.). @ -no U/S interpreted by me (1pt. min.). @ -no What testing was considered but not performed or refused? (CT, X-rays, U/S, labs)? Why? @ -none What meds were considered but not given or refused? Why? @ -none Did you discuss the management of the patient with other professionals (professionals i.e. , PA, BACKER UP, lab, RT, psych nurse, social work specialist, electro optical engineer, teacher, safety security officer, transplant case manager)? Give summary @ -no Was smoking cessation discussed for >3mins.? @ -no Was critical care preformed (if so, how long)? @ -no Were there social determinants of health that impacted care today? How? (Homelessness, low income, unemployed, alcoholism, drug addiction, transportation, low edu. Level, literacy, decrease access to med. care, care home, rehab)? @ -none Was there de-escalation of care discussed even if they declined (Discuss DNR or withdrawal of care, Hospice)? DNR status @ -no What co-morbidities impacted this encounter? (DM, HTN, Smoking, COPD, CAD, Cancer, CVA, ARF, Chemo, Hep., AIDS, mental health diagnosis, sleep apnea, morbid obesity)? @ -none Was patient admitted / discharged? Hospital course, mention meds given and route, prescriptions, significant lab abnormalities, going to OR and other pertinent info. @ - 38 male to the ER for evaluation of chest pain patient signed AMA from o bservation earlier we will admit for chest pain observation Admitted Undiagnosed new problem with uncertain prognosis? @ -no Drug Therapy requiring intensive monitoring for toxicity (Heparin, Nitro, Insulin, Cardizem)? @ -no Were any procedures done? @ -no Diagnosis/symptom? @ -Chest pain Acute, or Chronic, or Acute on Chronic? @ -Acute Uncomplicated (without systemic symptoms) or Complicated (systemic symptoms)? @ -Complicated Side effects of treatment? @ -no Exacerbation, Progression, or Severe Exacerbation? @ -exacerbation Poses a threat to life or bodily function? How? (Chest pain, [place], [place], pneumonia, PE, COPD, DKA, ARF, appy, cholecystitis, CVA, Diverticulitis, Homicidal, Suicidal, threat to staff... and all critical care pts) @ -yes with chest pain Reevaluation #5: Differential Chest Pain: Stable Angina, Unstable Angina, STEMI, NSTEMI Aortic Dissection, Pneumothorax, Musculoskeletal, Esophageal Spasm GERD, Cholecystitis, Pancreatitis, Zoster, this is not meant to be an all-inclusive list. - Consultations Consultation #1: Spoke with sound who agreed this patient Chest Pain MDM - MDM 38 male to the ER for evaluation of chest pain patient signed AMA from observation earlier we will admit for chest pain observation Disposition Clinical Impression: Chest pain Disposition: ADMITTED IP TO THIS HOSP Condition: Stable Is patient prescribed a controlled substance at d/c from ED?: No Time of Disposition: 21:00
[2024-08-13] MEDS ORDERED: ONDANSETRON 4 MG/2 ML VIAL IVP PRN (20:33)
[2024-08-13] MEDS ORDERED: NALOXONE 0.4 MG/ML 1 ML VIAL IV PRN (20:33)
[2024-08-13] MEDS ORDERED: MORPHINE SULFATE 4 MG/ML SYRINGE IV PRN (20:33)
[2024-08-13 21:12] LABS: HCT 46.6 % (39.6-50.0); HGB 15.7 g/dL (13.0-17.0); MCH 29.3 pg (27.0-32.0); MCHC 33.7 g/dL (32.0-37.0); MCV 86.9 fL (80.0-97.0); Mean Platelet Volume 9.8 fL (9.5-12.2); Platelet Count 315 10*3/uL (140-440); RBC 5.36 10*6/uL (4.40-5.60); RDW 13.8 % (11.5-14.5); WBC 12.65 10*3/uL (4.50-10.00)
[2024-08-13] MEDS: ASPIRIN 81 MG PO STA (21:19)
[2024-08-13 21:23] LABS: INR 0.9 (<1.2); Partial Thromboplastin Time 25.2 sec (22.0-30.0); Prothrombin Time 10.2 sec (10.0-12.5)
[2024-08-13 21:28] LABS: ALT 28 U/L (4-49); AST 28 U/L (17-59); African American GFR (CKD) >90 (>60 ml/min/1.73 sqM); Albumin 4.7 g/dL (3.5-5.0); Alkaline Phosphatase 121 U/L (38-126); Anion Gap 12 mmol/L; Blood Urea Nitrogen 13 mg/dL (9-20); Calcium 9.8 mg/dL (8.4-10.2); Carbon Dioxide 21 mmol/L (22-30); Chloride 105 mmol/L (98-107); Eosinophils # (M) 0.25 k/uL (0-0.7); Glucose 94 mg/dL (74-99); Lipase 74 U/L (23-300); Lymphocytes # (M) 5.69 k/uL (1.0-4.8); Magnesium 2.1 mg/dL (1.6-2.3); Monocytes # (M) 1.01 k/uL (0-1.0); Neutrophils # (M) 5.69 k/uL (1.3-7.7); Neutrophils % (M) 45 %; Non-African American GFR(CKD) >90 (>60 ml/min/1.73 sqM); Nucleated Red Blood Cells 0 /100 WBC (0-0); Potassium 4.1 mmol/L (3.5-5.1); Sodium 138 mmol/L (137-145); Total Bilirubin 0.5 mg/dL (0.2-1.3); Total Cells Counted 100; Total Protein 8.4 g/dL (6.3-8.2)
[2024-08-13 21:37] LABS: NT-Pro-B-Type Natriuretic Pept 57 pg/mL
[2024-08-13] MEDS: SODIUM CHLORIDE 0.9% 1,000 ML IV STA (22:07)
--- NOTE | 2024-08-13 22:14 | P.HPIM ---
History of Present Illness H&P Date: 08/13/24 Chief Complaint: Chest pain Patient is a 38 year old male with past medical history of CVA/TIA, hypertension presented to the ED with chest pain. Patient was seen earlier today in the ED with chest pain, but he left AMA. His family members had urged him to come back to the hospital to get medical evaluation. He then returned with similar symptoms. He still experiences chest pain. He states the pressure like left sided chest pain started today morning. The pain was 6/10 severity and did not radiate. He reports the pain is worse with walking/exertion and better with res t. Denies any changes his physical activity level recently, denies trauma and pain is not reproducible. Associated with that he experienced dizziness, nausea, diaphoresis. He has had symptoms in the past and did get medical evaluation at the time. He denies having stress test or heart catheterization in the past. He reports smoking a pack a day for 23 years. He reports having a cough with occassional sputum production. Denies being diagnosed with COPD/asthma. Denies any sick contacts. He also reports getting short of breath sometimes with walking and sometimes with sleeping flat, and needs to use 3 pillows at night while sleeping. He quit drinking alcohol 11months ago and has been sober since. Since then he has not taken his antihypertensive as he would become hypotensive. Currently not taking any medications at home. Moreover, he has also had palpitations and dizziness multiple times in the past but not had any medical evaluation for that as his symptoms would go away quickly. Denies fainting or falling. Denies fever, chills, shortness of breath, cough, palpitations, abdominal pain, vomiting, hematuria, dysuria, hematochezia, melena, headache, slurred speech, numbness, tingling, dizziness, lightheadedness, blurred vision, double vision. ED documentation reviewed. In the ED patient was treated with Aspirin 324 mg and 0.9 normal saline. Vitals on admission T 98.4 F, VA 97 bpm, RR 18, BP 158/95, SpO2 98% on room air EKG independently interpreted as sinus rhythm, rate 93 bpm, QTc 319 ms Chest x-ray shows no acute cardiopulmonary disease/process Labs on admission show WBC 12.65, hemoglobin 15.7, platelet 315, INR 0.9, Sodium 138, potassium 4.1, bicarb 21, creatinine 0.75, glucose 94, total protein 8.4, troponin I <0.012 Review of systems: Pertinent positives and negatives as discussed in HPI, a complete review of systems was performed and all other systems are negative. Physical examination: Vital signs reviewed General: nontoxic, no distress, appears at stated age Derm: warm, dry, intact Head: atraumatic, normocephalic, symmetric Eyes: EOMI, anicteric sclera Mouth: no lip lesion, mucus membranes moist Cardiovascular: S1 S2 reg, no murmur Lungs: CTA bilateral, no rhonchi, no rales, no accessory muscle use Abdominal: soft, non-tender to palpation Extremities: 1+ pitting edema b/l, No cyanosis, clubbing Neuro: Alert, Oriented, Gross neurological examination did not reveal any focal deficits. Psych: well appearing, appropriate affect Assessment/Plan: Patient is a 38 year old male with past medical history of CVA/TIA, hypertension presented to the ED with chest pain. Patient admitted to internal medicine service. Active: #. Stable angina EKG independently interpreted as sinus rhythm, rate 93 bpm, QTc 319 ms Chest x-ray shows no acute cardiopulmonary disease/process Troponin I <0.012 Initiate Aspirin 81 mg PO daily, Atorvastatin 80 mg PO daily Continue to trend troponin Obtain TSH, lipid panel, A1c Obtain stress test and echocardiogram Continue telemetry monitoring Consult cardiology #. Leukocytosis, likely reactive WBC 12.65 Monitor CBC #. Nausea and vomiting Continue Ondansetron 4 mg IVP Q8HR PRN Chronic #. History of TIA #. Hypertension #. ED on CPAP No home medications F: 0.9 normal saline at 75 ml/hr E: Replete as required N: Regular diet A: Ambulatory DVT prophylaxis: Lovenox 40 mg SQ daily The patient is admitted with an anticipated less than 2 midnight stay for evaluation of chest pain CODE STATUS: FULL CODE Discussed with: Patient Anticipated discharge place: Pending clinical course Dictation was produced using [employer] dictation software. please excuse any grammatical, word or spelling errors. Maria Luisa Douglas MD PGY-1 IM Attestation : Patient seen and examined with medical research tech. Agree with above assessment and plan. 38-year-old male patient with history of TIA, essential hypertension and obstructive sleep apnea noncompliant with CPAP. Patient presented initially with complaints of left-sided pressure-like chest pain and he ended up leaving AGAINST MEDICAL ADVICE. He presents back again with chest pain and bilateral ankle edema. He does report dyspnea on exertion, chest pain on exertion and tends to use 3 pillows when laying flat. He reports that he was evaluated for chest pain prior but no stress tests or echo. He is not currently on any antihypertensive medication. EKG did not show any ischemic changes and initial troponin was not elevated. Concern for underlying angina and questionable congestive heart failure. Will order stress test and echocardiogram. Continue trending troponin. Continue with aspirin and statin therapy. Will start patient on metoprolol tartrate 25 mg twice daily and oral lasix 20 mg . Time spent : 45 min Past Medical History Past Medical History: CVA/TIA, Hypertension History of Any Multi-Drug Resistant Organisms: None Reported Past Surgical History: No Surgical Hx Reported Past Anesthesia/Blood Transfusion Reactions: No Reported Reaction Past Psychological History: Anxiety, Bipolar, Depression Smoking Status: Current every day smoker Past Alcohol Use History: Abuse Past Drug Use History: None Reported - Past Family History Mother Family Medical History: Cancer, CVA/TIA, Hypertension Additional Family Medical History / Comment(s): sinus headaches, lung problems, Lung Cancer, Insomnia Medications and Allergies Home Medications Medication Instructions Recorded Confirmed Type No Known Home Medications 08/13/24 08/13/24 History Allergies Allergy/AdvReac Type Severity Reaction Status Date / Time No Known Allergies Allergy Verified 08/13/24 21:22 Physical Exam Vitals: Vital Signs Temp Pulse Resp BP Pulse Ox 08/13/24 19:57 98.4 F 97 18 158/95 98 Intake and Output 08/13/24 08/13/24 08/13/24 06:59 14:59 22:59 Other: Weight 97.522 kg Results CBC & Chem 7: 08/13/24 20:55 08/13/24 20:55
[2024-08-14 07:43] VITALS: BP 129/91; PULSE 75; TEMP 97.6
[2024-08-14 08:05] LABS: Basophils # (A) 0.05 X 10*3/uL (0.00-0.10); Basophils % (A) 0.5 %; Eosinophils # (A) 0.12 X 10*3/uL (0.04-0.35); Eosinophils % (A) 1.2 %; HCT 47.5 % (39.6-50.0); HGB 15.1 g/dL (13.0-17.0); Lymphocytes # (A) 3.75 X 10*3/uL (0.90-5.00); Lymphocytes % (A) 36.2 %; MCH 28.6 pg (27.0-32.0); MCHC 31.8 g/dL (32.0-37.0); Mean Platelet Volume 10.3 FL (9.5-12.2); Monocytes # (A) 0.86 X 10*3/uL (0.20-1.00); Monocytes % (A) 8.3 %; NRBC Per 100 WBC 0 X 10*3/uL (0.00-0.01); Neutrophils # (A) 5.53 X 10*3/uL (1.80-7.70); Neutrophils % (A) 53.4 %; Platelet Count 269 X 10*3/uL (140-440); RBC 5.28 X 10*6/uL (4.40-5.60); RDW 13.9 % (11.5-14.5); WBC 10.35 X 10*3/uL (4.50-10.00)
[2024-08-14] MEDS: ASPIRIN 81 MG PO SCH (08:32)
[2024-08-14] MEDS: ENOXAPARIN 40 MG/0.4 ML SYRINGE SQ SCH (08:32)
[2024-08-14] MEDS: ATORVASTATIN 80 MG TAB PO SCH (08:32)
[2024-08-14 08:57] LABS: Magnesium 2.2 mg/dL (1.5-2.4); Phosphorus 4.3 mg/dL (2.4-5.1)
[2024-08-14 08:58] LABS: ALT 30 U/L (10-49); AST 32 U/L (14-35); Albumin 3.9 g/dL (3.8-4.9); Albumin/Globulin Ratio 1.18 Ratio (1.60-3.17); Alkaline Phosphatase 117 U/L (41-126); BUN/Creat Ratio 13.67 Ratio (12.00-20.00); Blood Urea Nitrogen 12.3 mg/dL (9.0-27.0); Calcium 8.9 mg/dL (8.7-10.3); Carbon Dioxide 23.4 mmol/L (21.6-31.8); Chloride 103 mmol/L (96-109); Globulin 3.3 g/dL (1.6-3.3); Glucose 93 mg/dL (70-110); Potassium 4.7 mmol/L (3.5-5.5); Sodium 136 mmol/L (135-145); Total Bilirubin 0.4 mg/dL (0.3-1.2); Total Protein 7.2 g/dL (6.2-8.2)
[2024-08-14] MEDS ORDERED: FUROSEMIDE 20 MG TAB PO SCH (09:00)
[2024-08-14] MEDS ORDERED: METOPROLOL TARTRATE 25 MG TAB PO SCH (09:00)
[2024-08-14] MEDS ORDERED: NICOTINE GUM (POLACRILEX) 2 MG GUM BUCCAL PRN (10:18)
[2024-08-14] MEDS: NICOTINE 21MG/24HR PATCH TRANSDERM SCH (10:50)
--- NOTE | 2024-08-14 12:44 | P.CRDCN ---
History of Present Illness History of present illness: HISTORY OF PRESENT ILLNESS: This is a 38-year-old male with a past medical history significant for hypertension, obstructive sleep apnea, and TIA. Patient does not follow with a life teacher. We have been asked to see the patient in consultation for chest pain. Patient examined at the bedside. Patient states he has been having chest pain and dizziness. He states this has been happening for years but he decided to finally get it checked out. He reports the pain is related to exertion. He reports breaking out in a sweat and also feeling dizzy. He states the pain is on the left side of the chest. He reports he was previously on blood pressure medications but no longer takes meds. He smokes 1 pack per day. He used to abuse alcohol but states he has been sober for 11 months. DIAGNOSTICS: - EKG reveals sinus mechanism with no signs of acute ischemia. - Chest xray negative for acute process. - Laboratory data: WBC 12.65. Hemoglobin 15.7. Platelet count 315. Sodium 138. Potassium 4.1. BUN 13. Creatinine 0.75. Troponin negative x 1 - Current home cardiac medications include none - No previous echocardiogram, stress test, or cardiac catheterization available in EMR for review REVIEW OF SYSTEMS: At the time of my exam: CONSTITUTIONAL: Denies fever or chills. HEENT: Denies blurred vision, vision changes, or eye pain. Denies hemoptysis CARDIOVASCULAR: Denies chest pain. Denies orthopnea. Denies PND. Denies palpitations RESPIRATORY: Denies shortness of breath. GASTROINTESTINAL: Denies abdominal pain. Denies nausea or vomiting. HEMATOLOGIC: Denies bleeding disorders. GENITOURINARY: Denies any blood in urine. SKIN: Denies pruitis. Denies rash. PHYSICAL EXAM: VITAL SIGNS: Reviewed. GENERAL: Well-developed in no acute distress. HEENT: Head is normocephalic. Pupils are equal, round. Sclerae anicteric. Mucous membranes of the mouth are moist. Neck supple. No JVD or thyromegaly LUNGS: Respirations even and unlabored. Lungs essentially clear to auscultation bilaterally. HEART: Regular rate and rhythm. S1 and S2 heard. ABDOMEN: Soft. Nondistended. Nontender. EXTREMITIES: Normal range of motion. No clubbing or cyanosis. Peripheral pulses intact. No lower extremity edema NEUROLOGIC: Awake and alert. Oriented x 3. ASSESSMENT: Chest pain Hypertension Obstructive sleep apnea History of TIA History of alcohol abuse, sober for 11 months Nicotine dependence, patient smokes 1 PPD PLAN: An acute coronary event has been ruled out Obtain 2D echo to assess cardiac structure and function Begin carvedilol 3.125 mg twice daily Patient to undergo stress echocardiogram today Smoking cessation recommended Patient may be discharged home today if stress test is negative Further recommendations pending patient course Nurse practitioner note has been reviewed by physician. Signing provider agrees with the documented findings, assessment, and plan of care documented by INSTRUMENTAL MUSIC TEACHER as a scribe. Past Medical History Past Medical History: CVA/TIA, Hypertension History of Any Multi-Drug Resistant Organisms: None Reported Past Surgical History: No Surgical Hx Reported Past Anesthesia/Blood Transfusion Reactions: No Reported Reaction Past Psychological History: Anxiety, Bipolar, Depression Smoking Status: Current every day smoker Past Alcohol Use History: Abuse Past Drug Use History: None Reported - Past Family History Mother Family Medical History: Cancer, CVA/TIA, Hypertension Additional Family Medical History / Comment(s): sinus headaches, lung problems, Lung Cancer, Insomnia Medications and Allergies Home Medications Medication Instructions Recorded Confirmed Type No Known Home Medications 08/13/24 08/13/24 History Allergies Allergy/AdvReac Type Severity Reaction Status Date / Time No Known Allergies Allergy Verified 08/13/24 21:22 Physical Exam Vitals: Vital Signs Temp Pulse Pulse Resp BP BP Pulse Ox 08/14/24 07:38 97.6 F 75 18 129/91 99 08/14/24 07:01 65 18 146/88 96 08/14/24 05:51 78 18 152/94 96 08/13/24 19:57 98.4 F 97 18 158/95 98 Intake and Output 08/13/24 08/14/24 08/14/24 22:59 06:59 14:59 Other: Weight 97.522 kg 97.522 kg Results 08/14/24 06:05 08/14/24 06:05 Cardiac Enzymes 08/13/24 08/13/24 Range/Units 20:55 20:55 AST 28 (17-59) U/L Troponin I <0.012 (0.000-0.034) ng/mL Coagulation 08/13/24 Range/Units 20:55 PT 10.2 (10.0-12.5) sec APTT 25.2 (22.0-30.0) sec CBC 08/13/24 Range/Units 20:55 WBC 12.65 H (4.50-10.00) 10*3/uL RBC 5.36 (4.40-5.60) 10*6/uL Hgb 15.7 (13.0-17.0) g/dL Hct 46.6 (39.6-50.0) % Plt Count 315 (140-440) 10*3/uL Comprehensive Metabolic Panel 08/13/24 Range/Units 20:55 Sodium 138 (137-145) mmol/L Potassium 4.1 (3.5-5.1) mmol/L Chloride 105 (98-107) mmol/L Carbon Dioxide 21 L (22-30) mmol/L BUN 13 (9-20) mg/dL Creatinine 0.75 (0.66-1.25) mg/dL Glucose 94 (74-99) mg/dL Calcium 9.8 (8.4-10.2) mg/dL AST 28 (17-59) U/L ALT 28 (4-49) U/L Alkaline Phosphatase 121 (38-126) U/L Total Protein 8.4 H (6.3-8.2) g/dL Albumin 4.7 (3.5-5.0) g/dL Current Medications Generic Name Dose Route Start Last Admin Trade Name Freq PRN Reason Stop Dose Admin Aspirin 81 mg 08/14/24 09:00 Aspirin 81 Mg PO DAILY [facility] Atorvastatin Calcium 80 mg 08/14/24 09:00 Atorvastatin 80 Mg Tab PO DAILY [facility] Enoxaparin Sodium 40 mg 08/14/24 09:00 Enoxaparin 40 Mg/0.4 Ml Syringe SQ DAILY [facility] Furosemide 20 mg 08/14/24 09:00 Furosemide 20 Mg Tab PO DAILY [facility] Morphine Sulfate 4 mg 08/13/24 20:33 Morphine Sulfate 4 Mg/Ml Syringe IV Q4HR PRN Severe Pain (Scale 7 to 10) Naloxone HCl 0.2 mg 08/13/24 20:33 Naloxone 0.4 Mg/Ml 1 Ml Vial IV Q2M PRN Opioid Reversal Ondansetron HCl 4 mg 08/13/24 20:33 Ondansetron 4 Mg/2 Ml Vial IVP Q8HR PRN Nausea And Vomiting Intake and Output 08/13/24 08/14/24 08/14/24 22:59 06:59 14:59 Other: Weight 97.522 kg 97.522 kg Patient Weight 08/15/24 06:59 Weight 97.522 kg 08/13/24 20:55 08/13/24 20:55
--- NOTE | 2024-08-14 13:19 | P.PN ---
Subjective Progress Note Date: 08/14/24 Hospital course: Patient is a very pleasant 38-year-old male with a past medical history of hypertension, TIA, nicotine dependence, and obstructive sleep apnea. He presented to the hospital with a chief complaint of chest pain. Patient reports exertional chest pain has been ongoing for quite some time, over a year. He reports it has recently been accompanied by dizziness/lightheadedness. Upon arrival to our facility, patient underwent evaluation in the emergency department. Vital signs upon arrival show blood pressure 158/95, heart rate 97, respiratory rate 18, temp 98.4 F, and SpO2 of 98% on room air. EKG completed showing normal sinus rhythm at 93 bpm with no significant T wave or ST abn ormality showing no signs of acute ischemia upon personal review and interpretation. Chest x-ray completed on same day/previous ER visit when patient left AMA was negative for acute cardiopulmonary process. Labs were completed and reviewed. CBC showing mild leukocytosis with WBC count of 12.65 otherwise normal findings. Coagulation profile normal findings. BMP showing hypocarbia with bicarb of 21 and anion gap of 12. Blood glucose 94. Magnesium 2.1. Calcium 9.8. Liver profile unremarkable. Troponin negative at less than 0.012. Patient mated under services with consultation to cardiology. Troponins trended all negative at less than 0.012 x 3 draws. TSH normal findings at 2.510. Physical exam: Vital signs reviewed and stable. General: Nontoxic, no distress and appears stated age. Derm: Skin warm and dry, normal coloration for ethnicity. Head: Atraumatic, normocephalic and symmetric. Eyes: EOM's intact, no lid lag, and anicteric sclera Mouth: no lip lesions, mucus membranes moist Cardiovascular: regular rate and rhythm with normal S1S2, no murmur, positive posterior tibial pulses bilaterally, and cap refill < 2 seconds. Lungs: Respirations even, regular, and unlabored on room air. Lungs CTA bilaterally, no rhonchi, no rales, no wheezing, and no accessory muscle usage. Abdominal: soft, nontender to palpation, no guarding, no appreciable organomegaly Ext: ROM intact. No gross muscle atrophy, no edema, no contractures Neuro: Speech clear, face symmetrical and CN II-XII grossly intact with no noted focal neuro deficits Psych: Alert and oriented to person, place, time, and situation. Appropriate and pleasant affect. Assessment and Plan of Care: Chest pain, rule out acute coronary event Hypertension History of TIA -Cardiology consulted, discussed plan of care with cardiac AGENT SPA DESK patient undergo echocardiogram and stress. -Telemetry monitoring -Troponins negative at less than 0.012 x 3 draws. -Aspirin 81 mg daily, atorvastatin 80 mg daily, and carvedilol 3.125 mg twice daily. -Lipid profile with a.m. labs. -Echocardiogram to be completed. Nicotine dependence Recommend smoking cessation. Order placed for nicotine patch 21 mg daily along with Nicorette gum 2 mg every 2 hours as needed for persistent nicotine cravings Data and imaging reviewed: Troponins trended all negative at less than 0.012 x 3 draws. Repeat morning labs showing improvement of leukocytosis with WBC count decreasing to 10.35. BMP unremarkable. Blood glucose 93. Hemoglobin A1c slightly elevated at 6.1%, patient to be educated on importance of following heart healthy and carb consistent diet. Magnesium 2.2. Calcium 8.9. Liver profile unremarkable. TSH normal findings at 2.510. Vital signs reviewed. Blood pressure 129/91, heart rate 75, respiratory rate 18, temp 97.6 F, and SpO2 of 99% on room air CODE STATUS: Full code DVT prophylaxis: Lovenox Discussed with: Patient, RN, and cardiology AGENT SPA DESK Anticipated discharge date: Likely within the next [address]: Home Patient was seen independently by Nurse Pracitioner. This document was prepared using [employer] dictation software. Please allow for errors in regulatory affairs assistant, while rare they do occur. Donald Garza AGENT SPA DESK rendered care for this patient independently, reviewed the findi ngs and plan as documented in the note above and agree with plan. I did not physically speak with or examine the patient on this date. Objective - Vital Signs Vital signs: Vital Signs Temp 97.6 F 08/14/24 07:38 Pulse 75 08/14/24 07:38 Resp 18 08/14/24 07:38 BP 129/91 08/14/24 07:38 Pulse Ox 99 08/14/24 07:38 FiO2 Intake & Output 08/13/24 08/14/24 08/14/24 18:59 06:59 18:59 Weight 97.522 kg 97.522 kg - Labs CBC & Chem 7: 08/14/24 06:05 08/14/24 06:05 Labs: Abnormal Lab Results - Last 24 Hours (Table) 08/13/24 08/13/24 08/14/24 Range/Units 20:55 20:55 06:05 WBC 12.65 H 10.35 H (4.50-10.00) 10*3/uL MCHC 31.8 L (32.0-37.0) g/dL Lymphocytes # (Manual) 5.69 H (1.0-4.8) k/uL Monocytes # (Manual) 1.01 H (0-1.0) k/uL Carbon Dioxide 21 L (22-30) mmol/L Hemoglobin A1c (<=6.0) % Total Protein 8.4 H (6.3-8.2) g/dL Albumin/Globulin Ratio (1.60-3.17) Ratio 08/14/24 08/14/24 Range/Units 06:05 06:05 WBC (4.50-10.00) 10*3/uL MCHC (32.0-37.0) g/dL Lymphocytes # (Manual) (1.0-4.8) k/uL Monocytes # (Manual) (0-1.0) k/uL Carbon Dioxide (22-30) mmol/L Hemoglobin A1c 6.1 H (<=6.0) % Total Protein (6.3-8.2) g/dL Albumin/Globulin Ratio 1.18 L (1.60-3.17) Ratio
--- NOTE | 2024-08-14 14:43 | CA ---
Stress Echo Report Inocente Clark Age: 38 Gender: M : 1985 Exam Date: 08/14/2024 12:55 Exam Location: [facility] Ht (in): 76 Wt (lb): 315 Ordering Physician: Paige Marquis Referring Physician: [id number] Mechanical Service Specialist: NED Technologist Procedure CPT: Indication: Chest Pain ICD-9 Codes: Rhythm: Patient History: CHEST PAIN, DIFFICULTY IN BREATHING, PALPITATIONS, TIA, CURRENT SMOKER 1 PPD X 24 YEARS Cardiac Medications: Medications in past 24 hours: Contrast: Definity Stress Results Protocol: José Total dose(mL): 2 Exercise Duration (min:sec): 6:[address] Depression (mm): Angina Score: Moeller Score: METS: 7.9 Resting HR: 101 Resting BP: 129 / 92 Peak HR: 136 Peak BP: 178 / 50 Max Predicted HR: 181 75 % Max Predicted HR Target HR: 154 Double Product: [id number] Stress Summary: BP Response: Reason for Termination: Fatigue,MAX EXERTION Cardiac Symptoms: EMILY ECG Analysis Resting ECG: Stress ECG: Arrhythmia: Echo Analysis Resting Echo: Peak Echo Analysis: MEASUREMENTS (Male/Female) Normal Values CONCLUSIONS Patient underwent exercise stress echo with a José protocol treadmill stress test. Patient exercised into Stage 2 for a total of 6 minutes and 35 reaching a total of 7.9 METS. Patient's maximum heart rate was 136 which represented 75% age- predicted maximum heart rate. Stress test was stopped secondary to knee pain and patient did not have any significant chest pain or pressure. Stress EKG portion: At baseline patient's EKG showed normal sinus rhythm, normal axis, no significant ST or T wave abnormalities. At peak exercise, EKG showed no change from baseline. Stress echo portion: 2-D echocardiogram was performed in the parasternal long, personal short, apical 2 and apical four-chamber views at rest, peak exercise and in recovery. At baseline, echocardiogram showed left ventricular ejection fraction 55% without wall motion abnormalities. With peak exercise, echocardiogram shows improvement in left ventricular ejection fraction, increase contractility, decrease in left ventricular end systolic dimension without wall motion abnormalities consistent with a normal response to exercise. Conclusions: 1. Techinically inadequate stress test given inablility to reach 85% maximum predicted heart rate however at 75% MPHR, normal EKG and echo response to exercise without evidence of inducible ischemia. 2. Fair exercise capacity. Dr. Eduardo Carrion DO (Electronically Signed) Final Date: 14 August 2024 14:41
--- NOTE | 2024-08-14 15:41 | P.DS ---
Providers Date of admission: 08/13/24 20:35 Expected date of discharge: 08/14/24 Attending physician: Leonides Persaud MD Consults: 08/13/24 20:33 Consult Physician Routine Consulting Provider: Trevon Kumar Consult Reason/Comments: cp Do you want consulting provider notified?: Yes Primary care physician: Stated None Hospital Course: Discharge Diagnosis: Chest pain, acute coronary event ruled out Hypertension History of TIA Nicotine dependence Hospital Course: Patient is a very pleasant 38-year-old male with a past medical history of hypertension, TIA, nicotine dependence, and obstructive sleep apnea. He presented to the hospital with a chief complaint of chest pain. Patient reports exertional chest pain has been ongoing for quite some time, over a year. He reports it has recently been accompanied by dizziness/lightheadedness. Upon arrival to our facility, patient underwent evaluation in the emergency depar tment. Vital signs upon arrival show blood pressure 158/95, heart rate 97, respiratory rate 18, temp 98.4 F, and SpO2 of 98% on room air. EKG completed showing normal sinus rhythm at 93 bpm with no significant T wave or ST abnormality showing no signs of acute ischemia upon personal review and interpretation. Chest x-ray completed on same day/previous ER visit when patient left AMA was negative for acute cardiopulmonary process. Labs were completed and reviewed. CBC showing mild leukocytosis with WBC count of 12.65 otherwise normal findings. Coagulation profile normal findings. BMP showing hypocarbia with bicarb of 21 and anion gap of 12. Blood glucose 94. Magnesium 2.1. Calcium 9.8. Liver profile unremarkable. Troponin negative at less than 0.012. Patient mated under services with consultation to cardiology. Troponins trended all negative at less than 0.012 x 3 draws. TSH normal findings at 2.510. Patient underwent stress echo showing EKG and echo response to exercise without inducible ischemia and fair exercise capacity. Notified by lamination inspector that patient is cleared from their perspective for discharge may follow-up patient in their office for echocardiogram results. Patient free from any complaints at this time and is medically optimized for discharge. Patient to follow-up outpatient with PCP in 1 to 2 days and with lamination inspector in 1 week. Patient discharged home with prescription for aspirin, atorvastatin, and Coreg. Physical exam: Patient seen and examined at bedside. Vital signs reviewed and stable. General: Nontoxic, no distress and appears stated age. Derm: Skin warm and dry, normal coloration for ethnicity. Head: Atraumatic, normocephalic and symmetric. Eyes: EOM's intact, no lid lag, and anicteric sclera Mouth: no lip lesions, mucus membranes moist Cardiovascular: regular rate and rhythm with normal S1S2, no murmur, positive posterior tibial pulses bilaterally, and cap refill < 2 seconds. Lungs: Respirations even, regular, and unlabored on room air. Lungs CTA bilaterally, no rhonchi, no rales, no wheezing, and no accessory muscle usage. Abdominal: soft, nontender to palpation, no guarding, no appreciable organomegaly Ext: ROM intact. No gross muscle atrophy, no edema, no contractures Neuro: Speech clear, face symmetrical and CN II-XII grossly intact with no noted focal neuro deficits Psych: Alert and oriented to person, place, time, and situation. Appropriate and pleasant affect. A total of 33 minutes of time were spent preparing this complex discharge summary. Pt was discharged on 08/14/2024 at 2:46 PM. Patient was seen independently by Nurse Practitioner. This document was prepared using [employer] dictation software. Please allow for errors in corporate meeting planner while rare they do occur. Donald Garza NP rendered care for this patient independently, reviewed the findings and plan as documented in the note above. I did not physically speak with or examine the patient on this date. Patient Condition at Discharge: Stable Plan - Discharge Summary New Discharge Prescriptions: New Atorvastatin [Lipitor] 80 mg PO DAILY #30 tab Aspirin 81 mg PO DAILY #30 tab carvediloL [Coreg] 3.125 mg PO BID-W/MEALS #60 tab Discharge Medication List Aspirin 81 mg PO DAILY #30 tab 08/14/24 [Rx] Atorvastatin [Lipitor] 80 mg PO DAILY #30 tab 08/14/24 [Rx] carvediloL [Coreg] 3.125 mg PO BID-W/MEALS #60 tab 08/14/24 [Rx] Follow up Appointment(s)/Referral(s): Eduardo Carrion DO [STAFF PHYSICIAN] - 1 Week [facility] [NON-STAFF] - 1 Week Patient Instructions/Handouts: Chest Pain (DC) Activity/Diet/Wound Care/Special Instructions: Activity: As tolerated. Take breaks as needed. Diet: Heart healthy and carb consistent diet. Avoid salts, or foods with hidden salts such as canned or boxed foods and frozen dinners. Extra salt makes your heart work harder and traps the fluid in your body for longer. Special Instructions: Take all of your medications as directed and remember to keep all of your doctor's appointments and follow-up as needed. Thank you for allowing us to participate in your care, it was truly a pleasure having you for our patient!!! Discharge Disposition: HOME SELF-CARE
[2024-08-14 15:46] LABS: Chol/HDL Ratio 5.62 Ratio; LDL Cholesterol,Calculated 104.1 mg/dL (0.0-131.0)
[2024-08-14] MEDS ORDERED: carvediloL 3.125 MG TAB PO SCH (17:30)
--- NOTE | 2024-08-14 17:58 | CA ---
Transthoracic Echo Report Name: Inocente Clark Age: 38 Gender: M : 1985 Exam Date: 08/14/2024 13:22 Exam Location: [facility] Ht (in): 76 Wt (lb): 215 Ordering Physician: Maria Luisa Douglas MD Attending/Referring Phys: V[employer] Department Worker Gladys Villa RDCS Procedure CPT: Indications: Chest Pain Cardiac Hx: Technical Quality: Fair Contrast 1: Definity Total Dose (mL): 2 Contrast 2: Total Dose (mL): MEASUREMENTS (Male / Female) Normal Values 2D ECHO LV Diastolic Diameter PLAX 4.0 cm 4.2 - 5.9 / 3.9 - 5.3 cm LV Systolic Diameter PLAX 2.6 cm IVS Diastolic Thickness 1.4 cm 0.6 - 1.0 / 0.6 - 0.9 cm LVPW Diastolic Thickness 1.6 cm 0.6 - 1.0 / 0.6 - 0.9 cm LV Relative Wall Thickness 0.8 RV Internal Dim ED PLAX 2.5 cm LA Systolic Diameter LX 3.8 cm 3.0 - 4.0 / 2.7 - 3.8 cm M-MODE Aortic Root Diameter MM 3.5 cm LA Systolic Diameter MM 3.6 cm LA Ao Ratio MM 1.1 AV Cusp Separation MM 2.2 cm DOPPLER Mitral E Point Velocity 85.1 cm/s Mitral A Point Velocity 79.9 cm/s Mitral E to A Ratio 1.1 MV Deceleration Time 304.8 ms MV E' Velocity 7.6 cm/s Mitral E to MV E' Ratio 11.1 TR Peak Velocity 252.8 cm/s TR Peak Gradient 25.6 mmHg PV Peak Velocity 142.1 cm/s PV Peak Gradient 8.1 mmHg FINDINGS Left Ventricle Left ventricular ejection fraction is estimated at 60-65%. Moderately increased septal wall thickness. Normal left ventricular systolic function with no obvious regional wall motion abnormalities. Left ventricular cavity size normal. Right Ventricle Mild right ventricular dilatation. Right ventricular systolic pressure within normal limits. Right Atrium Normal right atrial size. Left Atrium Normal left atrial size. Mitral Valve Structurally normal mitral valve. Trace mitral regurgitation. No mitral stenosis. Aortic Valve Trileaflet aortic valve. No aortic valve stenosis or regurgitation. Tricuspid Valve Structurally normal tricuspid valve. Mild tricuspid regurgitation. No tricuspid stenosis. Pulmonic Valve Structurally normal pulmonic valve. Trace pulmonic regurgitation. No pulmonic stenosis. Pericardium No pericardial or pleural effusion. Aorta Normal size aortic root and proximal ascending aorta. CONCLUSIONS Left ventricular ejection fraction 60 to 65% Moderately increased left ventricular wall thickness Trace mitral regurgitation Mild tricuspid regurgitation No pericardial effusion Previewed by: Dr. Eduardo Carrion DO (Electronically Signed) Final Date: 14 August 2024 17:57
== END 2024-08-14 15:45 | disposition home or self-care (01) ==
LOC: EC 19:53 → 6NMEDSUR 20:35 → 1SOBS 08-14 05:32
PROVIDERS: ADMIT Student in an Organized Health Care Education/Training Program; ATTEND Student in an Organized Health Care Education/Training Program
DX: R07.9 Chest pain, unspecified (principal); D72.829 Elevated white blood cell count, unspecified; R11.2 Nausea with vomiting, unspecified; I10 Essential (primary) hypertension; F17.210 Nicotine dependence, cigarettes, uncomplicated; G47.33 Obstructive sleep apnea (adult) (pediatric); Z82.49 Family history of ischemic heart disease and other diseases of the circulatory system; Z86.73 Personal history of transient ischemic attack (TIA), and cerebral infarction without residual deficits; Z91.199 Patient's noncompliance with other medical treatment and regimen due to unspecified reason
CPT/HCPCS: 96372; 99285; 93005; 93306; 93351; 83880; 80061; 80053 ×2; 84443; 83690; 83735 ×2; 84100; 84484 ×2; 85025 ×2; 85610; 85730; 83036; G0378 ×2; S4990; J1650; Q9957